=== PATIENT | male | born 1980 | race African-American/Black ===

== ENCOUNTER 2021-04-11 17:35 | Emergency (ER) | payer MEDICAID ==
[~2021-04-11] VITALS: Ht 188 cm; Wt 109.0 kg
[~2021-04-11 17:35] MED LIST: LISI10TA26 PO
[2021-04-11 17:38] VITALS: BP 117/87
== END 2021-04-11 22:11 | disposition left against medical advice (07) ==
LOC: ER 17:35
DX: R07.89 Other chest pain (principal); Z53.21 Procedure and treatment not carried out due to patient leaving prior to being seen by health care provider
CPT/HCPCS: 93005